=== PATIENT | female | born 1960 | race Caucasian/White ===

== ENCOUNTER → 2017-10-25 | Outpatient (CLI) | payer OTHER | LOC: M WHC 13:18 | DX: Z12.31 Encounter for screening mammogram for malignant neoplasm of breast (principal); N60.31 Fibrosclerosis of right breast; N60.32 Fibrosclerosis of left breast | CPT/HCPCS: 77067 ==

== ENCOUNTER → 2017-10-25 | Outpatient (REF) | payer OTHER ==
[2017-10-29 14:28] LABS: HPV HYBRID CAPTURE II Negative (Negative)
== END ==
LOC: M SFHCWAGY 14:13
DX: Z12.4 Encounter for screening for malignant neoplasm of cervix (principal)

== ENCOUNTER → 2018-11-11 | Outpatient (CLI) | payer OTHER ==
--- NOTE | 2018-11-11 15:30 | REPMRS ---
Patient History The patient states she had a clinical breast exam in 10/2018. Family history of colorectal cancer at age 60 in father. No Hormone Replacement Therapy 3D TOMOSYNTHESIS WAS PERFORMED. The Donal Cortez lifetime risk for breast cancer is 9.7%. Digital Woman Screen Mammo: November 11, 2018 - Exam #: [id number] Bilateral CC and MLO view(s) were taken. Technologist: Patti Doherty, Technologist Prior study comparison: October 25, 2017, bilateral digital woman screen mammo performed at [facility]. 2014, bilateral screening 3D/tomosynthesis, performed at [facility]. FINDINGS: The breast tissue is heterogeneously dense. This may lower the sensitivity of mammography. There has been no change in the appearance of the mammogram from the prior studies. There is a moderate amount of residual fibroglandular tissue which is fairly symmetric. There is no interval development of dominant mass, areas of architectural distortion, or clustered microcalcification typical of malignancy. Assessment: BI-RADS/ACR category 1 mammogram. Negative Mammogram. Recommendation Routine screening mammogram in 1 year (for women over age 40). This mammogram was interpreted with the aid of an FDA-approved computer-aided dectection system. Electronically Signed By: Elías Judge MD 11/11/18 4614
== END ==
LOC: M WHC 13:28
PROVIDERS: ATTEND Nurse Practitioner Family
DX: Z12.31 Encounter for screening mammogram for malignant neoplasm of breast (principal)

== ENCOUNTER → 2018-12-08 | Outpatient (CLI) | payer OTHER ==
--- NOTE | 2018-12-09 04:24 | REP ---
Clinical: Pelvic pain. Technique: Transabdominal pelvic ultrasound followed by transvaginal examination for better evaluation of the endometrium and adnexa with color Doppler evaluation of the ovaries. Findings: Bladder is unremarkable and measures 11.0 x 9.9 x 8.3 cm . Normal anteverted uterus measures 7.0 x 2.3 x 4.5 cm . The endometrial complex measures 5.9 mm thickness. No discrete uterine or endometrial abnormalities are appreciated. Incidental subcentimeter Nabothian cysts noted. Bilateral ovaries are normal in appearance and vascularity without evidence for torsion. Right ovary measures 2.3 x 1.0 x 2.0 cm ; R I = 0.52 . Left ovary measures 2.2 x 1.1 x 2.4 cm ; R I = 0.66 . No pelvic fluid or adnexal mass lesion . Impression: 1. Essentially normal pelvic ultrasound.
== END ==
LOC: M WHC 13:55
PROVIDERS: ATTEND Nurse Practitioner Family
DX: R10.2 Pelvic and perineal pain (principal)

== ENCOUNTER → 2019-12-11 | Outpatient (CLI) | payer OTHER ==
--- NOTE | 2019-12-17 09:37 | REP ---
BILATERAL SCREENING MAMMOGRAM WITH 3D TOMOSYNTHESIS HISTORY: No family history of breast cancer. Tyrer-Cuzick lifetime risk of breast cancer 9.4%. TECHNIQUE: MLO and CC views of both breasts performed with 3D tomosynthesis. COMPARISON: Made with prior study of 11/11/2018, as well as other prior exams. FINDINGS: There is moderate gallbladder tissue scattered bilaterally. The Volpara breast density is B. No mass is seen on the right. On the left, there is a somewhat tubular nodule, which is lobulated in the inferolateral aspect of the left breast posteriorly. This measures approximately 18 x 8 mm. Just lateral to that and superior to that, a smaller 5 mm nodule is seen. There are no clustered microcalcifications bilaterally. IMPRESSION: ACR 0 incomplete. Two new nodular opacities in the inferolateral left breast posteriorly measuring 18 x 8 mm and 5 mm. Recommend spot compression views and ultrasound to further evaluate. This mammogram was interpreted with the aid of an FDA approved computer-aided detection system. The patient states her last clinical breast exam was 11/2019. Patient letter: 0. MTDD
== END ==
LOC: M WHC 14:56
PROVIDERS: ATTEND Nurse Practitioner Family
DX: N63.20 Unspecified lump in the left breast, unspecified quadrant (principal); R92.2 Inconclusive mammogram

== ENCOUNTER → 2019-12-17 | Outpatient (CLI) | payer OTHER ==
--- NOTE | 2019-12-22 12:50 | REP ---
DIGITAL DIAGNOSTIC UNILATERAL LEFT BREAST MAMMOGRAPHY WITH CAD, 3D TOMOGRAPHY HISTORY: Add views. Screening mammography 12/11/2019 was BI-RADS Category 0 because of an irregular new nodular density in the inferior and lateral quadrant of the left breast. Diagnostic imaging was recommended. MAMMOGRAPHIC FINDINGS: Magnified focal spot compression CC, MLO, and true mediolateral views are obtained. Repeat craniocaudal view with tomography is obtained. Scattered fibroglandular elements are seen. The nodular densities seen on the 12/11/2019 study are no longer present. They have resolved. No suspicious finding. IMPRESSION: BI-RADS Category 1 negative left breast mammography. Repeat screening mammography recommended in one year. This mammogram was interpreted with the aid of an FDA approved computer-assisted detection system. Patient letter: Saba NAPIER
== END ==
LOC: M WHC 08:04
PROVIDERS: ATTEND Nurse Practitioner Family
DX: R92.2 Inconclusive mammogram (principal)

== ENCOUNTER → 2021-01-24 | Outpatient (CLI) | payer OTHER ==
--- NOTE | 2021-01-25 09:13 | REPMRS ---
Patient History The patient states she had a clinical breast exam in January 2021. Patient is postmenopausal. Family history of colorectal cancer at age 60 in father, prostate cancer at age 68 in brother. No Hormone Replacement Therapy Tomosynthesis is performed. Volpara breast density is b. [facility] lifetime risk of breast cancer 9.2%. Patient states no breast complaints today. Patient has signed MRS History Sheet. Digital Woman Screen Mammo: January 24, 2021 - Exam #: [id number] Bilateral CC and MLO view(s) were taken. Technologist: Patti Doherty, Technologist Prior study comparison: December 17, 2019, left breast diagnostic unilateral mammo performed at [facility]. December 11, 2019, bilateral digital woman screen mammo performed at [facility]. 2014, bilateral screening 3D/tomosynthesis, performed at [facility]. FINDINGS: There are scattered fibroglandular densities. There has been no change in the appearance of the mammogram from the prior studies. There is a mild amount of residual fibroglandular tissue which is fairly symmetric. There is no interval development of dominant mass, architectural distortion, or clustered microcalcification suggestive of malignancy. Assessment: BI-RADS/ACR category 1 mammogram. Negative Mammogram. Recommendation Routine screening mammogram in 1 year (for women over age 40). This mammogram was interpreted with the aid of an FDA-approved computer-aided dectection system. Electronically Signed By: Elías Judge MD 01/25/21 0912
== END ==
LOC: M WHC 15:18
PROVIDERS: ATTEND Nurse Practitioner Women's Health
DX: Z12.31 Encounter for screening mammogram for malignant neoplasm of breast (principal)

== ENCOUNTER → 2021-01-24 | Outpatient (REF) | payer OTHER | LOC: M SFHCWAGY 17:16 | PROVIDERS: ATTEND Nurse Practitioner Women's Health | DX: Z01.419 Encounter for gynecological examination (general) (routine) without abnormal findings (principal); Z12.4 Encounter for screening for malignant neoplasm of cervix | CPT/HCPCS: 87624; G0123 ==